=== PATIENT | female | born 1960 | race Caucasian/White ===

== ENCOUNTER 2023-06-23 14:05 | Outpatient (OUT) | payer OTHER, SELFPAY ==
--- NOTE | 2023-06-23 14:51 | XR_ITS ---
The [address] [address] Patient Name: MOSES CARBALLO MRN: [id number] date: 1960 Sex: F Assigned Patient Location: [facility] Current Patient Location: [facility] Accession/Order Number: [id number] Exam Date: 06/23/2023 14:51 Report Date: 06/23/2023 23:17 At the request of: DEMETRIO DONOHUE Procedure: XR foot LT min 3V EXAM: XR foot LT min 3V HISTORY: LEFT FOOT PAIN COMPARISON: 07/21/2022 TECHNIQUE: 4 view study FINDINGS: There is deformity of the first metatarsal consistent with previous hallux valgus procedure with osteotomy and distal medial resection. There is significant narrowing at the first MP joint with articular surface irregularity, articular surface sclerosis, and osteophytosis. The distal aspect of the proximal phalanx of the second toe has been resected. A posterior calcaneal enthesophyte is noted. Overall bony architecture is otherwise normal. There is pes planus deformity. XR/XR foot LT min 3V IMPRESSION: Postoperative changes at the first and second rays. Advanced degenerative changes at the first MP joint. Pes planus deformity. Posterior calcaneal enthesophyte. Electronically authenticated by: Dorene TALBOT Date: 06/23/2023 23:17
--- NOTE | 2023-06-23 14:51 | XR_ITS ---
The [address] [address] Patient Name: MOSES CARBALLO MRN: [id number] date: 1960 Sex: F Assigned Patient Location: [facility] Current Patient Location: [facility] Accession/Order Number: [id number] Exam Date: 06/23/2023 14:51 Report Date: 06/23/2023 23:14 At the request of: DEMETRIO DONOHUE Procedure: XR ankle LT min 3V EXAM: XR ankle LT min 3V HISTORY: LEFT ANKLE PAIN COMPARISON: 07/21/2022 TECHNIQUE: 3 view study FINDINGS: Overall bony architecture is normal. Ankle mortise relationships are intact. There is a pes planus deformity. A posterior calcaneal enthesophyte is noted. Soft tissue swelling medially is noted. XR/XR ankle LT min 3V IMPRESSION: Posterior calcaneal enthesophyte. Pes planus deformity. No acute bone or joint abnormality at the ankle. Electronically authenticated by: Doreen TALBOT Date: 06/23/2023 23:14
== END 2023-06-23 14:06 | disposition home or self-care (01) ==
LOC: RAD 14:06
PROVIDERS: Visit Provider Podiatrist Foot & Ankle Surgery
DX: M19.072 Primary osteoarthritis, left ankle and foot (principal); M21.42 Flat foot [pes planus] (acquired), left foot; M77.32 Calcaneal spur, left foot
CPT/HCPCS: 73610; 73630

== ENCOUNTER 2023-07-07 09:32 | Outpatient (OUT) | payer OTHER, SELFPAY ==
--- NOTE | 2023-07-07 10:46 | CA_ITS ---
The [facility] Test Date: 2023-07-07 Pat Name: MOSES CARBALLO Department: Room: - Gender: Female [facility]: : 1960 Requested By: DEMETRIO DONOHUE Order Number: [id number] Reading MD: CARMEN MATHIAS Interpretive Statements Biphasic doppler waveforms PVR waveforms with normal upstroke, amplitude and dicrotic notch Right: - no significant pressure gradient between cuffs - normal PRIETO Left: - no significant pressure gradient between cuffs - normal PRIETO Impression: - normal arterial evaluation of the lower extremities without hemodynamic impairment of the B/L lower extremities at rest (right PRIETO 1.07, left PRIETO 1.10) Electronically Signed On 07-08-2023 7:32:59 EDT by CARMEN MATHIAS
== END 2023-07-07 09:33 | disposition home or self-care (01) ==
LOC: CARD 09:34
PROVIDERS: Visit Provider Podiatrist Foot & Ankle Surgery
DX: R09.89 Other specified symptoms and signs involving the circulatory and respiratory systems (principal)
CPT/HCPCS: 93923

== ENCOUNTER 2024-04-19 10:32 | Outpatient (OUT) | payer OTHER, SELFPAY ==
--- NOTE | 2024-04-19 | XR_ITS ---
[address] [address] Patient Name: MOSES CARBALLO MRN: [id number] date: 1960 Sex: F Assigned Patient Location: Current Patient Location: Accession/Order Number: [id number] Exam Date: 04/19/2024 10:35 Report Date: 04/19/2024 13:30 At the request of: DEMETRIO DONOHUE Procedure: XR ankle LT min 3V PROCEDURE: XR ankle LT min 3V, XR foot LT min 3V COMPARISON: 06/23/2023 HISTORY: LEFT ANKLE PAIN FINDINGS: BONES:No acute fracture or dislocation of the ankle or foot. Pes planus. Progression of moderate to severe diffuse degenerative changes most significant in the midfoot and hindfoot. Bony remodeling of the talus. Severe degenerative changes of the first metatarsal phalangeal joint with varus angulation of the first proximal phalanx in relation to the metatarsal These findings appear slightly progressed SOFT TISSUES:Soft tissue swelling EFFUSION:Large joint effusion OTHER: Negative. XR/XR ankle LT min 3V IMPRESSION: Moderate to severe degenerative changes, slightly progressed Electronically authenticated by: ESTRELLA RICHARDSON Date: 04/19/2024 13:30
--- NOTE | 2024-04-19 | XR_ITS ---
[address] [address] Patient Name: MOSES CARBALLO MRN: [id number] date: 1960 Sex: F Assigned Patient Location: Current Patient Location: Accession/Order Number: [id number] Exam Date: 04/19/2024 10:35 Report Date: 04/19/2024 13:30 At the request of: DEMETRIO DONOHUE Procedure: XR foot LT min 3V PROCEDURE: XR ankle LT min 3V, XR foot LT min 3V COMPARISON: 06/23/2023 HISTORY: LEFT ANKLE PAIN FINDINGS: BONES:No acute fracture or dislocation of the ankle or foot. Pes planus. Progression of moderate to severe diffuse degenerative changes most significant in the midfoot and hindfoot. Bony remodeling of the talus. Severe degenerative changes of the first metatarsal phalangeal joint with varus angulation of the first proximal phalanx in relation to the metatarsal These findings appear slightly progressed SOFT TISSUES:Soft tissue swelling EFFUSION:Large joint effusion OTHER: Negative. XR/XR foot LT min 3V IMPRESSION: Moderate to severe degenerative changes, slightly progressed Electronically authenticated by: ESTRELLA RICHARDSON Date: 04/19/2024 13:30
== END 2024-04-19 10:33 | disposition home or self-care (01) ==
PROVIDERS: Visit Provider Podiatrist Foot & Ankle Surgery
DX: M14.672 Charcot's joint, left ankle and foot (principal); M25.472 Effusion, left ankle
CPT/HCPCS: 73610; 73630

== ENCOUNTER 2024-09-19 09:45 | Outpatient (OUT) | payer OTHER, SELFPAY ==
--- NOTE | 2024-09-19 | XR_ITS ---
[address] [address] Patient Name: MOSES CARBALLO MRN: [id number] date: 1960 Sex: F Assigned Patient Location: [facility] Current Patient Location: [facility] Accession/Order Number: [id number] Exam Date: 09/19/2024 09:53 Report Date: 09/19/2024 13:57 At the request of: DEMETRIO DONOHUE Procedure: XR ankle LT min 3V PROCEDURE: XR foot LT min 3V, XR ankle LT min 3V COMPARISON: 04/19/2024 HISTORY: LEFT FOOT PAIN FINDINGS: BONES:Stable severe degenerative changes with joint space narrowing marginal osteophyte formation and sclerosis. There is partial pes planus. Suspected partial collapse of the posterior talus in relation to the calcaneus, stable SOFT TISSUES:Negative. No visible soft tissue swelling. EFFUSION:None visible. OTHER: Negative. XR/XR ankle LT min 3V IMPRESSION: Severe degenerative changes of the foot and ankle, stable Electronically authenticated by: ESTRELLA RICHARDSON Date: 09/19/2024 13:57
--- NOTE | 2024-09-19 | XR_ITS ---
[address] [address] Patient Name: MOSES CARBALLO MRN: [id number] date: 1960 Sex: F Assigned Patient Location: [facility] Current Patient Location: [facility] Accession/Order Number: [id number] Exam Date: 09/19/2024 09:53 Report Date: 09/19/2024 13:57 At the request of: DEMETRIO DONOHUE Procedure: XR foot LT min 3V PROCEDURE: XR foot LT min 3V, XR ankle LT min 3V COMPARISON: 04/19/2024 HISTORY: LEFT FOOT PAIN FINDINGS: BONES:Stable severe degenerative changes with joint space narrowing marginal osteophyte formation and sclerosis. There is partial pes planus. Suspected partial collapse of the posterior talus in relation to the calcaneus, stable SOFT TISSUES:Negative. No visible soft tissue swelling. EFFUSION:None visible. OTHER: Negative. XR/XR foot LT min 3V IMPRESSION: Severe degenerative changes of the foot and ankle, stable Electronically authenticated by: ESTRELLA RICHARDSON Date: 09/19/2024 13:57
== END 2024-09-19 09:46 | disposition home or self-care (01) ==
LOC: RAD 09:45
PROVIDERS: Visit Provider Podiatrist Foot & Ankle Surgery
DX: M14.672 Charcot's joint, left ankle and foot (principal)
CPT/HCPCS: 73610; 73630